=== PATIENT | male | born 1975 | race Caucasian/White ===

== ENCOUNTER 2017-06-05 10:02 | Emergency (ER) | payer BC, MEDICAID ==
[2017-06-05 10:19] VITALS: BP 120/65
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
[2017-06-05] MEDS ORDERED: Tetan/Diph/Pertus SYR(Tdap)* 0.5 ML SYR(BOOSTRIX) use SYR IM ONE (11:13)
== END 2017-06-05 11:36 | disposition home or self-care (01) ==
LOC: UCCORT 10:02
DX: S50.811A Abrasion of right forearm, initial encounter (principal); W50.3XXA Accidental bite by another person, initial encounter; Y93.9 Activity, unspecified; Y92.199 Unspecified place in other specified residential institution as the place of occurrence of the external cause; Y99.0 Civilian activity done for income or pay; Z23 Encounter for immunization; Z87.891 Personal history of nicotine dependence
CPT/HCPCS: 90471; 90715; 99213; G0463

== ENCOUNTER 2017-11-09 10:09 | Emergency (ER) | payer BC ==
[2017-11-09 11:56] VITALS: BP 113/66
--- NOTE | 2017-11-09 12:14 | UC ---
General HPI - HPI Summary HPI Summary: 42 yo gentleman c/o waking up this morning with cough, congestion, achy / tired , runny nose, low fever. Mild h/a. No GI issues. No rash. Sent home from work. - History of Current Complaint Chief Complaint: UCRespiratory Stated Complaint: FEVER,SORE THROAT Time Seen by Provider: 11/09/17 12:13 Hx Obtained From: Patient Pain Intensity: 8 - Allergy/Home Medications Allergies/Adverse Reactions: Allergies Allergy/AdvReac Type Severity Reaction Status Date / Time seasonal Allergy Sneezing Uncoded 11/09/17 11:47 Home Medications: Home Medications Ibuprofen TAB* [Advil TAB*] 200 mg PO Q6H PRN 11/09/17 [History Confirmed ] PMH/Surg Hx/FS Hx/Imm Hx Previously Healthy: Yes - Surgical History Surgical History: None - Family History Known Family History: Positive: None - Social History Alcohol Use: None Substance Use Type: None Smoking Status (MU): Former Smoker Type: Cigarettes Amount Used/How Often: / PPD Length of Time of Smoking/Using Tobacco: 3 Years Have You Smoked in the Last Year: No When Did the Patient Quit Smoking/Using Tobacco: ~2000 - Immunization History Most Recent Influenza Vaccination: Fall 2014 Most Recent Tetanus Shot: unsure, spoke with PCP, not UTD, updated today 06/05/17 Review of Systems Constitutional: Fever, Fatigue Skin: Negative Eyes: Negative ENT: Sore Throat, Nasal Discharge Respiratory: Cough Cardiovascular: Negative Gastrointestinal: Negative Genitourinary: Negative Motor: Negative Neurovascular: Negative Musculoskeletal: Myalgia Neurological: Negative Psychological: Negative Is Patient Immunocompromised?: No All Other Systems Reviewed And Are Negative: Yes Physical Exam Triage Information Reviewed: Yes Appearance: Well-Nourished - sitting up, conversing easily and appropriately. NAD. Vital Signs: Initial Vital Signs Temp 99.1 F 11/09/17 11:51 Pulse 59 11/09/17 11:51 Resp 18 11/09/17 11:51 BP 113/66 11/09/17 11:51 Pulse Ox 99 11/09/17 11:51 Vital Signs Reviewed: Yes Eye Exam: Normal ENT: Positive: Pharyngeal erythema - mild post pharyngeal redness, no sores or exudates appreciated, TM dull - TM dull au Neck exam: Normal Neck: Positive: Supple, Nontender Respiratory Exam: Normal Respiratory: Positive: Chest non-tender, Lungs clear, Normal breath sounds, No respiratory distress, No accessory muscle use Cardiovascular Exam: Normal Cardiovascular: Positive: RRR, No Murmur, Pulses Normal - hr correlates with left radial pulse, Brisk Capillary Refill Abdominal Exam: Normal Abdomen Description: Positive: Nontender Bowel Sounds: Positive: Present Musculoskeletal Exam: Normal - gait steady, moves x 4 ext's Neurological Exam: Normal - grossly nonfocal Psychological Exam: Normal - conversing easily and appropriately Skin Exam: Normal - nondiaphoretic. no visible or reported rash. Course/Dx - Course Course Of Treatment: Influenza a/b -> "B" positive. Reviewed COA / tx plan with Mr. Dela Cruzart. Questions as posed answered to the best of my ability. - Differential Dx - Multi-Symptom Provider Diagnoses: Influenza B Discharge - Discharge Plan Condition: Stable Disposition: HOME Prescriptions: Oseltamivir CAP* [Tamiflu CAP*] 75 mg PO BID #10 cap Patient Education Materials: Influenza (ED) Forms: *Work Release Referrals: Gerardo Rebolledo DO [Primary Care Provider] - Additional Instructions: Follow up with your primary care provider per routine. Seek medical attention for worse or new problems in the meantime.
== END 2017-11-09 12:58 | disposition home or self-care (01) ==
LOC: UCCORT 10:09
DX: J10.1 Influenza due to other identified influenza virus with other respiratory manifestations (principal); Z87.891 Personal history of nicotine dependence
CPT/HCPCS: 87502; 99212; G0463